=== PATIENT | male | born 1935 | race Caucasian/White ===

== ENCOUNTER 2020-01-24 01:21 | Inpatient (IN) | payer MEDICARE ==
[~2020-01-24] VITALS: Ht 190.5 cm; Wt 95.3 kg
--- NOTE | 2020-01-24 01:27 | NUR ---
PATIENT CAME TO ER BED 1 C/O LEFT SIDED CHEST PAIN. PATIENT CURRENTLY DENIES ANY PAIN. PATIENT STATES THAT HE WAS GOING TO SLEEP WHEN HE TOOK HIS SYMBICORT FOR HIS ASTHMA AND THEN HE FELT TIGHTNESS IN HIS CHEST. PATIENT STATES THAT HE HAD THIS PAIN ABOUT 5x DAYS AGO WELL. AAOX4. NO SOB. BREATHING EVENLY AND UNLABORED ON ROOM AIR. CONNECTED TO NATIONAL SALES CONSULTANT.
--- NOTE | 2020-01-24 01:32 | NUR ---
AT BEDSIDE FOR EVALUATION.
--- NOTE | 2020-01-24 01:33 | NUR ---
EMT AT BEDSIDE FOR EKG
--- NOTE | 2020-01-24 01:39 | NUR ---
TUTOR COORDINATOR AT BEDSIDE FOR LABS.
[2020-01-24 01:44] LABS: BASOPHILS % (AUTO) 0.5 % (0.0-2.0); EOSINOPHILS % (AUTO) 4.6 % (0.0-6.0); HEMATOCRIT 40 % (39-51); HEMOGLOBIN 13.2 g/dL (13.5-17.5); LYMPHOCYTES # (AUTO) 2.5 /CMM (0.8-4.8); LYMPHOCYTES % (AUTO) 35.7 % (20.0-44.0); MEAN CORPUSCULAR HGB CONC 33 g/dl (31.0-36.0); MEAN CORPUSCULAR VOLUME 96 fL (80-96); MONOCYTES # (AUTO) 0.6 /CMM (0.1-1.30); MONOCYTES % (AUTO) 8.5 % (2.0-12.0); NEUTROPHILS # (AUTO) 3.6 /CMM (1.8-8.9); NEUTROPHILS % (AUTO) 50.7 % (43.0-81.0); PLATELET COUNT (AUTO) 227 /CMM (150-450); RED BLOOD CELL COUNT(AUTO) 4.16 MIL/uL (4.5-6.0)
[2020-01-24 01:55] LABS: CREATININE 0.9 mg/dL (0.6-1.3)
[2020-01-24 02:08] LABS: ALBUMIN 3.8 g/dL (3.4-5.0); BILIRUBIN,DIRECT 0.1 mg/dL (0.0-0.2); BILIRUBIN,TOTAL 0.3 mg/dL (0.2-1.0); CALCIUM, SERUM 8.3 mg/dL (8.5-10.1); TOTAL PROTEIN, SERUM 6.7 g/dL (6.4-8.2)
--- NOTE | 2020-01-24 02:19 | NUR ---
SPOKE TO PT'S . UNABLE TO OBTAIN MED LIST. STATED SHE WILL BE BACK WITH MEDICATION LIST IN THE MORNING. PT'S AWARE OF PT BEING ADMITTED.
--- NOTE | 2020-01-24 02:23 | NUR ---
PT AMBUALTED TO THE RESTROOM, VSS.
--- NOTE | 2020-01-24 02:25 | NUR ---
PT BACK TO BED. PLACED ON MONITOR AND PULSE OX.
--- NOTE | 2020-01-24 02:55 | NUR ---
PT TRANSFERD PER ACLS PROTOCOL
[2020-01-24 03:00] VITALS: BP 166/73
[2020-01-24] MEDS ORDERED: NITROGLYCERIN 0.4 MG/TAB BOTTLE SL PRN (03:00)
[2020-01-24] MEDS ORDERED: DOCUSATE SODIUM 100 MG CAPSULE PO PRN (03:00)
[2020-01-24] MEDS ORDERED: MORPHINE SULFATE INJ 2 MG/ML DISP.SYRIN IV PRN (03:00)
[2020-01-24] MEDS ORDERED: MAG HYDROX/AL HYDROX/SIMETH 30 ML UDC PO PRN (03:00)
[2020-01-24] MEDS ORDERED: ONDANSETRON HCL/PF 4 MG/2 ML VIAL IVP PRN (03:00)
[2020-01-24] MEDS ORDERED: ACETAMINOPHEN 325 MG TABLET PO PRN (03:00)
--- NOTE | 2020-01-24 03:00 | NUR ---
COAL DRIER OPERATORFLOOR SANDING MACHINE OPERATOR NOTES RECEIVED FROM ER THIS 84 YO MALE.ALERT,ORIENTED X4,NO SOB,WITH CHIEF COMPLAINTS OF CHEST PAIN ART MANAGER.NO SKIN ISSUES.SALINE LOCK RIGHT AC INTACT AND PATENT.DENIES CHEST PAIN UPON ARRIVAL ON THE FLOOR,O2 SAT 100% ON ROOM AIR.SR-68 ON TELE MONITOR.PATIENT VERBALIZED THAT HE'S ON SYMBICORT PUFFS FOR HIS ASTHMA.2 PUFFS TWICE A DAY,THAT MAYBE HE OVERDO TAKING IT WHEN HES SHORT OF BREATH.AMBULATE WITH STEADY GAIT.BED ON LOWEST POSITION AND LOCKED.CALL LIGHT IN REACH,NEEDS ANTICIPATED.
[2020-01-24 04:03] VITALS: BP 146/80
[2020-01-24] MEDS ORDERED: ALBU18HF2 IH (04:22)
[2020-01-24] MEDS ORDERED: PIOG15TA8 PO (04:22)
[2020-01-24] MEDS ORDERED: METF-440 PO (04:22)
[2020-01-24] MEDS ORDERED: LEVO50TA8 PO (04:22)
[2020-01-24] MEDS ORDERED: IBUP-1957 PO (04:22)
[2020-01-24] MEDS ORDERED: INSU100C10 SQ (04:22)
[2020-01-24] MEDS ORDERED: VALS160T2 PO (04:22)
--- NOTE | 2020-01-24 06:30 | NUR ---
AIRPLANE FUELER NOTES RESTING COMFORTABLY ON BED,DENIES CHEST PAIN,IN NO ACUTE DISTRESS.CALL LIGHT IN REACH,NEEDS ATTENDED.
--- NOTE | 2020-01-24 07:30 | NUR ---
Tele/RN Opening note Received patient AO x 4, able to responds all stimuli. Denies chest pain or any discomfort. Skin is warm to touch, kept clean/dry. Respiratory even and unlabored in room air. Keep bed in lock with low position and elevated HOB. Call light within reach, will continue to monitor.
[2020-01-24] MEDS ORDERED: METOPROLOL TARTRATE INJ 5 MG/5 ML AMPUL IVP PRN (08:30)
[2020-01-24] MEDS ORDERED: NITROGLYCERIN 0.4 MG/TAB BOTTLE SL ONE (08:30)
[2020-01-24] MEDS ORDERED: ASPIRIN 81 MG TAB.CHEW PO SCH (09:00)
[2020-01-24] MEDS ORDERED: METFORMIN 500 MG TABLET PO SCH (09:00)
[2020-01-24] MEDS ORDERED: PIOGLITAZONE HCL 15 MG TABLET PO SCH (09:00)
[2020-01-24] MEDS ORDERED: LEVOTHYROXINE SODIUM 50 MCG TABLET PO SCH (09:00)
[2020-01-24] MEDS ORDERED: ENOXAPARIN SODIUM 100 MG/ML DISP.SYRIN SQ SCH (09:00)
[2020-01-24] MEDS ORDERED: VALSARTAN 80 MG TABLET PO SCH (09:00)
[2020-01-24] MEDS ORDERED: INSU300I SQ (09:18)
[2020-01-24] MEDS ORDERED: IOHEXOL-350 100 ML VIAL IV ONE (09:19)
[2020-01-24] MEDS ORDERED: IV NS 0.9% 250 ML IV ONE (09:19)
[2020-01-24] MEDS ORDERED: METOPROLOL TARTRATE INJ 5 MG/5 ML AMPUL ONE (09:28)
--- NOTE | 2020-01-24 09:39 | NUR ---
POST CTA. PT TOLERATED WELL CTA PROCEDURE, NOT IN RESPIRATORY DISTRESS, V/S STABLE, KEPT RESTED AND COMFORTABLE, REPORT GIVEN TO BRADLEY TANG FOR OLIVIA.
[2020-01-24 10:05] VITALS: BP 140/70
[2020-01-24] MEDS ORDERED: SIMV-46 PO (12:45)
--- NOTE | 2020-01-24 13:00 | NUR ---
Given discharge instruction include new medication/prescription, side effecting. Patient verbally understanding. Pt left facility accompanied by staff to the private car, denies chest pain or any discomfort, in stable condition.
[2020-01-24] MEDS ORDERED: SIMVASTATIN 20 MG TABLET PO SCH (22:00)
== END 2020-01-24 13:06 | disposition home or self-care (01) | DRG 281 ==
LOC: ER 01:21 → TELE 02:39
PROVIDERS: ADMIT Hospitalist; ATTEND Hospitalist
DX: I21.4 Non-ST elevation (NSTEMI) myocardial infarction (principal); N17.9 Acute kidney failure, unspecified; N39.0 Urinary tract infection, site not specified; E11.9 Type 2 diabetes mellitus without complications; I10 Essential (primary) hypertension; J45.909 Unspecified asthma, uncomplicated; E03.9 Hypothyroidism, unspecified; E86.0 Dehydration
CPT/HCPCS: 36415; 71045-TC; 75574; 80048-TC; 80076-TC; 83880; 84484-TC; 85025-TC; 85730-TC; 87081-TC; 93307-TC; G0378; J1650; J3490; J7050; Q9967

== ENCOUNTER 2023-01-04 17:18 | Inpatient (IN) | payer MEDICARE, OTHER ==
[~2023-01-04] VITALS: Ht 190.5 cm; Wt 88.5 kg
[~2023-01-04 17:18] MED LIST: ALBU18HF2 IH; IBUP-1957 PO; INSU100C10 SQ; INSU300I SQ; LEVO50TA8 PO; METF-440 PO; PIOG15TA8 PO; SIMV-46 PO; VALS160T2 PO
--- NOTE | 2023-01-04 17:33 | NUR ---
BIBS C/O SOB X 3 DAYS. "MY INHALER IS NOT WORKING". AMBULATORY, PLACED IN BED, AAOX4, BREATHING UNLABORED SATURATING AT 96%RA.
--- NOTE | 2023-01-04 17:46 | NUR ---
CALLED DR. SHERMAN CASCADE OPERATOR [phone] OPTION 2, 0. DR. HOLT IS DEMONSTRATOR ELECTRIC GAS APPLIANCES AND WILL BE PAGED.
--- NOTE | 2023-01-04 17:59 | NUR ---
BLOOD DRAWN AND SENT TO LAB
[2023-01-04] MEDS ORDERED: ALBUTEROL FS 2.5 MG/3 ML VIAL.NEB NEB ONE (18:00)
[2023-01-04] MEDS ORDERED: OLME20TA23 PO (18:18)
[2023-01-04] MEDS ORDERED: AMLO2.5T4 PO (18:18)
[2023-01-04] MEDS ORDERED: DULA1.5P SQ (18:18)
[2023-01-04] MEDS ORDERED: FLUT1BLS6 INH (18:18)
--- NOTE | 2023-01-04 18:20 | NUR ---
MOVE SHEET SUBMITTED.
[2023-01-04] MEDS ORDERED: METF-440 PO (18:34)
[2023-01-04] MEDS ORDERED: INSU300I SQ (18:34)
[2023-01-04] MEDS ORDERED: INSU100V11 SQ (18:34)
--- NOTE | 2023-01-04 18:39 | NUR ---
SWAB FOR COVID19 SENT TO LAB
[2023-01-04 18:41] LABS: BASOPHILS % (AUTO) 0.5 % (0.0-2.0); EOSINOPHILS % (AUTO) 0.7 % (0.0-6.0); HEMATOCRIT 44 % (39-51); HEMOGLOBIN 14.4 g/dL (13.5-17.5); LYMPHOCYTES % (AUTO) 17.4 % (20.0-44.0); MEAN CORPUSCULAR HGB CONC 33 g/dl (31.0-36.0); MEAN CORPUSCULAR VOLUME 95 fL (80-96); MONOCYTES # (AUTO) 0.6 K/uL (0.1-1.30); MONOCYTES % (AUTO) 10.5 % (2.0-12.0); NEUTROPHILS # (AUTO) 4.2 K/uL (1.8-8.9); NEUTROPHILS % (AUTO) 70.9 % (43.0-81.0); PLATELET COUNT (AUTO) 277 K/uL (150-450); RED BLOOD CELL COUNT(AUTO) 4.65 MIL/uL (4.5-6.0); WHITE BLOOD COUNT (AUTO) 5.9 K/uL (4.3-11.0)
[2023-01-04] MEDS ORDERED: AMIODARONE 450 MG in IV D5W 250 ML IV ONE (19:00)
[2023-01-04] MEDS ORDERED: AMIODARONE 150 MG in IV D5W 100 ML IV ONE (19:00)
[2023-01-04 19:03] LABS: CALCIUM, SERUM 9.2 mg/dL (8.5-10.1); CARBON DIOXIDE 29 mmol/L (21-32); CHLORIDE 104 mmol/L (98-107); CREATININE 1.2 mg/dL (0.6-1.3); POTASSIUM 4.2 mmol/L (3.5-5.1); SODIUM SERUM 139 mmol/L (136-145); UREA NITROGEN, BLOOD 19 mg/dL (7-18)
[2023-01-04 19:11] LABS: GLUCOSE 47 mg/dL (74-106)
[2023-01-04 19:15] LABS: ALANINE AMINOTRANSFERASE 36 U/L (12-78); ALBUMIN 3.8 g/dL (3.4-5.0); ALKALINE PHOSPHATASE 130 U/L (46-116); ASPARTATE AMINOTRANSFERASE 25 U/L (15-37); BILIRUBIN,DIRECT 0.4 mg/dL (0.0-0.2); BILIRUBIN,TOTAL 1.2 mg/dL (0.2-1.0); TOTAL PROTEIN, SERUM 7.2 g/dL (6.4-8.2)
[2023-01-04] MEDS ORDERED: DEXTROSE 50%-WATER 50 ML DISP.SYRIN ONE (19:19)
[2023-01-04] MEDS ORDERED: DEXTROSE 50%-WATER 50 ML DISP.SYRIN IV ONE (19:30)
[2023-01-04] MEDS ORDERED: MAG HYDROX/AL HYDROX/SIMETH 30 ML UDC PO PRN (20:00)
[2023-01-04] MEDS ORDERED: AMIODARONE 450 MG in IV D5W 241 ML IV PRN (20:00)
[2023-01-04] MEDS ORDERED: FUROSEMIDE 20 MG/2 ML VIAL IV ONE (20:00)
[2023-01-04] MEDS ORDERED: Z GUARD REMEDY 4 OZ OINT TP PRN (20:00)
[2023-01-04] MEDS ORDERED: ACETAMINOPHEN 325 MG TABLET PO PRN (20:00)
[2023-01-04] MEDS ORDERED: ZOLPIDEM TARTRATE 5 MG TABLET PO PRN (20:00)
[2023-01-04] MEDS ORDERED: DEXTROSE 50%-WATER 50 ML DISP.SYRIN IV PRN (20:00)
[2023-01-04] MEDS ORDERED: MAGNESIUM HYDROXIDE 30 ML UDC PO PRN (20:00)
[2023-01-04] MEDS ORDERED: ONDANSETRON HCL/PF 4 MG/2 ML VIAL IVP PRN (20:00)
[2023-01-04] MEDS ORDERED: FUROSEMIDE 20 MG/2 ML VIAL ONE (20:02)
--- NOTE | 2023-01-04 20:33 | NUR ---
REPORT GIVEN TO FRANCISCO J HUERTA ROOM 115-2 FOR OLIVIA
--- NOTE | 2023-01-04 20:50 | NUR ---
[facility] RELOCATION ASSOCIATE NOTES RECEIVED REPORT FROM TOBACCO CLASSER LUCHO. PATIENT TRANSFERRED TO [facility], PLACED IN ROOM 115-2. PATIENT A&O X4. PATIENT ON RA O2 SATURATION 97%, SLIGHT SOB. AFIB RVR ON THE MONITOR. IV ACCESS ON RAC 20 GAUGE, INTACT AND PATENT, NO S/S OF INFILTRATION, RUNNING AMIODARONE DRIP AT 33.3 ML/HR. DRIP WAS STARTED AT 19:30. NO MANIFESTATIONS OF ACUTE PAIN OR DISCOMFORT. ASSESSED THE WHOLE BODY, NO OPEN SKIN, NO SKIN DISCOLORATION NOTED. FAMILY AT BEDSIDE. ALL SAFETY MEASURES IMPLEMENTED, BED LOCKED IN LOWEST POSITION, SIDE RAILS X3 UP, HOB ELEVATED, BELONGINGS AND CALL LIGHT WITHIN REACH. WILL CONTINUE TO MONITOR.
--- NOTE | 2023-01-04 20:58 | NUR ---
PATIENT TRANSFERED AND ADMITTED PER ACLS PROTOCOL
[2023-01-04 21:00] VITALS: BP 138/80
[2023-01-04] MEDS ORDERED: ALBUTEROL FS 2.5 MG/0.5 ML VIAL.NEB IH PRN (21:00)
[2023-01-04] MEDS: methylPREDNISolone SOD SUCC 40 MG/ML VIAL IV SCH (21:11)
[2023-01-04] MEDS: BLOOD SUGAR DIAGNOSTIC 1 EACH STRIP IN SCH (22:24)
[2023-01-04] MEDS: INSULIN REGULAR, HUMAN 100 UNIT/ML 3 ML VIAL SQ PRN (22:25)
--- NOTE | 2023-01-04 22:26 | NUR ---
RN NOTE BLOOD SUGAR 140, PATIENT HAD EPISODE OF HYPOGLYCEMIA, BLOOD SUGAR WAS AT 47. PATIENT HAD A SNACK AFTER HE WAS ADMITTED TO THE [facility]. NOTIFIED STEM MOUNTER Jana TUTTLE, HELD INSULIN. NO S/S OF HYPER OR HYPOGLYCEMIA.
[2023-01-05] VITALS: BP 124/96
[2023-01-05] MEDS: ALBUTEROL HALF STRENGTH 1.25 MG/3 ML VIAL.NEB NEB SCH ×2 (01:26→07:49)
--- NOTE | 2023-01-05 01:35 | NUR ---
RN NOTES: AMIODARONE DRIP DECREASED TO 16.6ML/HR X18 HOURS. V/S STABLE. WILL CONTINUE TO MONITOR
[2023-01-05 04:00] VITALS: BP 128/81
[2023-01-05] MEDS: methylPREDNISolone SOD SUCC 40 MG/ML VIAL IV SCH ×2 (04:09→09:41)
[2023-01-05] MEDS ORDERED: FUROSEMIDE 40 MG/4 ML VIAL IV ONE (05:00)
[2023-01-05] MEDS ORDERED: DILTIAZEM HCL 50 MG IV IV ONE (05:00)
[2023-01-05 06:21] LABS: BASOPHILS % (AUTO) 0.1 % (0.0-2.0); HEMATOCRIT 44 % (39-51); HEMOGLOBIN 14.6 g/dL (13.5-17.5); LYMPHOCYTES # (AUTO) 0.3 K/uL (0.8-4.8); LYMPHOCYTES % (AUTO) 7.6 % (20.0-44.0); MEAN CORPUSCULAR HGB CONC 33 g/dl (31.0-36.0); MEAN CORPUSCULAR VOLUME 94 fL (80-96); MONOCYTES # (AUTO) 0.1 K/uL (0.1-1.30); MONOCYTES % (AUTO) 1.5 % (2.0-12.0); NEUTROPHILS # (AUTO) 3.2 K/uL (1.8-8.9); NEUTROPHILS % (AUTO) 90.8 % (43.0-81.0); PLATELET COUNT (AUTO) 250 K/uL (150-450); WHITE BLOOD COUNT (AUTO) 3.5 K/uL (4.3-11.0)
[2023-01-05 06:36] LABS: CALCIUM, SERUM 9.2 mg/dL (8.5-10.1); PHOSPHORUS 4.6 mg/dL (2.5-4.9); POTASSIUM 4.1 mmol/L (3.5-5.1)
--- NOTE | 2023-01-05 06:40 | NUR ---
[facility] RN CLOSING NOTES PATIENT IN BED, SLEEPING. PATIENT A&O X4. PATIENT ON 2 LITERS OF SUPPLEMENTAL OXYGEN VIA NC, NO S/S OF RESPIRATORY DISTRESS. AFIB RVR ON THE MONITOR. IV ACCESS ON RAC 20 GAUGE, INTACT AND PATENT, NO S/S OF INFILTRATION, RUNNING AMIODARONE DRIP AT 16.6 ML/HR. NO MANIFESTATIONS OF ACUTE PAIN OR DISCOMFORT. FAMILY AT BEDSIDE. ALL SAFETY MEASURES IMPLEMENTED, BED LOCKED IN LOWEST POSITION, SIDE RAILS X2 UP, HOB ELEVATED, BELONGINGS AND CALL LIGHT WITHIN REACH. WILL BE ENDORSED TO THE NEXT SHIFT.
[2023-01-05 08:00] VITALS: BP 135/93
--- NOTE | 2023-01-05 08:01 | NUR ---
[facility] RN NOTE PATIENT R IN BED , PT IS A/OX4, ON 2L NC NO SOB NOTED AT THIS TIME HAS IV ACCESS ON THE RT AC 20G NS RUNNING AT 0.5 MG AMIODARONE DRIP ORDERED, ON TELE MONITOR AFIB HR 122-135 DR ROMERO NOTIFIED SAFETY PRECAUTIONS IN PLACE, BED IS AT LOWEST POSITION, CALL LIGHT WITHIN REACH AND INSTRUCTED TO CALL FOR ASSISTANCE,KEPT DRY AND CLEAN, [place] Addendum: 01/05/23 at 0804 by CHIOMA OBREGON RN WILL MONITOR CLOSELY Addendum: 01/05/23 at 1845 by CHIOMA OBREGON RN [phone] DR ROMERO NOTIFIED THAT AMIO DRIP WILL BE COMPETED AT 1930 TONIGHT NO NEW ORDER GIVEN AT THIS TIME
[2023-01-05] MEDS: LEVOTHYROXINE SODIUM 75 MCG TABLET PO SCH (08:32)
[2023-01-05] MEDS: AMLODIPINE BESYLATE 2.5 MG TABLET PO SCH (08:33)
[2023-01-05] MEDS: INSULIN REGULAR, HUMAN 100 UNIT/ML 3 ML VIAL SQ PRN ×2 (08:35→13:40)
[2023-01-05] MEDS: BLOOD SUGAR DIAGNOSTIC 1 EACH STRIP IN SCH ×2 (08:49→12:22)
[2023-01-05] MEDS ORDERED: ENOXAPARIN SODIUM 40 MG/0.4 ML DISP.SYRIN SQ SCH (09:00)
--- NOTE | 2023-01-05 09:30 | NUR ---
telephone information clerk note [facility] done is score 8 at this time, Ame neurologist BRADLEY N P at bedside checking PATIENT with ORDER cta brain and carotid ,will f\u Addendum: 01/05/23 at 1844 by CHIOMA OBREGON RN correction, no NIHSS score, wrong charting
[2023-01-05] MEDS: FUROSEMIDE 40 MG/4 ML VIAL IV SCH ×3 (09:41→17:03)
[2023-01-05] MEDS: POTASSIUM CHLORIDE 20 MEQ TAB.PRT.SR PO SCH ×2 (09:41→10:57)
[2023-01-05] MEDS: IPRATROPIUM NEB FS 0.5 MG/2.5 ML AMPUL.NEB NEB SCH ×3 (09:50→19:43)
[2023-01-05] MEDS ORDERED: ENOXAPARIN SODIUM 100 MG/ML DISP.SYRIN SQ SCH (10:00)
[2023-01-05] MEDS: FLUTICASONE/VILANTEROL 1 EACH BLST.W.DEV IH SCH (10:57)
[2023-01-05] MEDS ORDERED: ENOXAPARIN SODIUM 60 MG/0.6 ML DISP.SYRIN SQ ONE (11:30)
--- NOTE | 2023-01-05 11:43 | NUR ---
television presenter nnote on amio drip as ordered seen by spenser rn supervisor [employer] 2d echo done as ordered
[2023-01-05 12:00] VITALS: BP 127/82
--- NOTE | 2023-01-05 14:18 | NUR ---
[facility] RN NOTE CT CHEST DONE ORDERED
--- NOTE | 2023-01-05 15:49 | NUR ---
[facility] RN NOTE REPORTED TO DR BASS THAT BLOOD SUGAR 206 MG\DL ,266, 271MG\DL , OK TO CHANGE TO MILD SLIDING SCALE , ORDER CARRIED OUT
[2023-01-05 16:00] VITALS: BP 123/75
[2023-01-05] MEDS ORDERED: *INSULIN REGULAR(HUMULIN R)HUM 100 UNIT/ML VIAL SQ PRN (16:00)
[2023-01-05] MEDS ORDERED: DEXTROSE 50%-WATER 50 ML DISP.SYRIN IV PRN (16:00)
[2023-01-05] MEDS ORDERED: INSULIN REGULAR, HUMAN 100 UNIT/ML 3 ML VIAL SQ PRN (16:00)
[2023-01-05] MEDS: BLOOD SUGAR DIAGNOSTIC 1 EACH STRIP VI SCH ×2 (17:44→21:24)
--- NOTE | 2023-01-05 18:35 | NUR ---
niall rn note patient in bed , alert oriented x4 ,on amiodarone drip as ordered , still afib hr 110 at this time, on 2l nc no sob noted at this time , using urinal effectively rt ac hl intact and flushed well , bed in lowest and locked position ,call light within reach , will cont to monitor closely ,safety measure implemented,
--- NOTE | 2023-01-05 19:00 | NUR ---
RN NOTE Report received from Fior HUERTA, patient in bed, AAO x 4, on high dietz's, family at bedside, saturation at 96% on 2L via NC, afib on the monitor HR is 115. IV line at RAC 20g patent and flushing well with ongoing amiodarone drip at 0.5 mg/min. Patient is continent and able to uses urinal. Safety measures in place, bed is locked and at lowest position, HOB elevated, call light within reach of patient. Will continue to monitor and reassess.
--- NOTE | 2023-01-05 19:59 | NUR ---
RN NOTE Amiodarone drip completed 24h per orders, per Dr Pearl discontinue amiodarone drip then start Digoxin 0.25 IV Q6H x 3 doses.
[2023-01-05 20:00] VITALS: BP 107/65
[2023-01-05] MEDS: ENOXAPARIN SODIUM 100 MG/ML DISP.SYRIN SQ SCH (21:13)
[2023-01-05] MEDS: DIGOXIN INJ 0.5 MG/2 ML AMPUL IV SCH (21:15)
[2023-01-06] VITALS: BP 125/94
[2023-01-06] MEDS: IPRATROPIUM NEB FS 0.5 MG/2.5 ML AMPUL.NEB NEB SCH ×3 (01:52→13:27)
--- NOTE | 2023-01-06 01:52 | NUR ---
RT Meds not scanned at this [place], no scanner available.
[2023-01-06] MEDS: DIGOXIN INJ 0.5 MG/2 ML AMPUL IV SCH ×2 (02:46→07:39)
[2023-01-06 04:00] VITALS: BP_SYST 124; BP_SYST 133; BP_DIAS 63; BP_DIAS 84
--- NOTE | 2023-01-06 06:11 | NUR ---
EKG completed, Results given to enterprise integration developer Elsa
--- NOTE | 2023-01-06 06:40 | NUR ---
RN NOTE Patient in bed, AAO x 4, on high dietz's, family at bedside, saturation at 97% on 2L via NC, afib on the monitor HR is 75-95. IV line at RAC 20g patent and flushing well. Patient is continent and able to uses urinal. Safety measures in place, bed is locked and at lowest position, srx2 are up, HOB elevated, call light within reach of patient. Will endorse to the next shift for OLIVIA
[2023-01-06] MEDS: LEVOTHYROXINE SODIUM 75 MCG TABLET PO SCH (07:39)
[2023-01-06] MEDS: BLOOD SUGAR DIAGNOSTIC 1 EACH STRIP VI SCH ×2 (07:45→11:34)
[2023-01-06 08:00] VITALS: BP 113/74
[2023-01-06] MEDS: methylPREDNISolone SOD SUCC 40 MG/ML VIAL IV SCH (08:10)
[2023-01-06] MEDS: AMLODIPINE BESYLATE 2.5 MG TABLET PO SCH (08:10)
[2023-01-06] MEDS: ENOXAPARIN SODIUM 100 MG/ML DISP.SYRIN SQ SCH (08:10)
[2023-01-06] MEDS: FLUTICASONE/VILANTEROL 1 EACH BLST.W.DEV IH SCH (08:14)
--- NOTE | 2023-01-06 08:50 | NUR ---
DR. GOODRICH ORDER NOT TO GIVE THE LOVENOX DUE TO PATIENT WILL HAVE THORACENTESIS TODAY, NOTED AND CARRIED OUT.
[2023-01-06] MEDS ORDERED: DILTIAZEM HCL CD 240 MG PO SCH (09:00)
--- NOTE | 2023-01-06 09:00 | NUR ---
DR. GOODRICH SPOKE TO THE PATIENT AND AT THE BEDSIDE, PATIENT REFUSED TO DO THORACENTESIS TODAY, PER DR. GOODRICH CAN RESUME LOVENOX, NOTED AND CARRIED OUT.
[2023-01-06 09:14] LABS: BASOPHILS # (AUTO) 0.1 K/uL (0.0-0.2); BASOPHILS % (AUTO) 0.5 % (0.0-2.0); EOSINOPHILS % (AUTO) 0.1 % (0.0-6.0); HEMATOCRIT 42 % (39-51); HEMOGLOBIN 13.9 g/dL (13.5-17.5); LYMPHOCYTES # (AUTO) 1.1 K/uL (0.8-4.8); LYMPHOCYTES % (AUTO) 9.4 % (20.0-44.0); MEAN CORPUSCULAR HGB CONC 33 g/dl (31.0-36.0); MEAN CORPUSCULAR VOLUME 94 fL (80-96); MONOCYTES # (AUTO) 0.9 K/uL (0.1-1.30); MONOCYTES % (AUTO) 7.7 % (2.0-12.0); NEUTROPHILS # (AUTO) 9.4 K/uL (1.8-8.9); NEUTROPHILS % (AUTO) 82.3 % (43.0-81.0); PLATELET COUNT (AUTO) 222 K/uL (150-450); RED BLOOD CELL COUNT(AUTO) 4.44 MIL/uL (4.5-6.0); WHITE BLOOD COUNT (AUTO) 11.5 K/uL (4.3-11.0)
[2023-01-06 09:25] LABS: CALCIUM, SERUM 8.8 mg/dL (8.5-10.1); CREATININE 1.1 mg/dL (0.6-1.3); MAGNESIUM 2.2 mg/dL (1.8-2.4); PHOSPHORUS 4.1 mg/dL (2.5-4.9); POTASSIUM 4.2 mmol/L (3.5-5.1)
[2023-01-06] MEDS ORDERED: ENOXAPARIN SODIUM 100 MG/ML DISP.SYRIN SQ SCH (09:30)
[2023-01-06 12:00] VITALS: BP 135/84
[2023-01-06] MEDS ORDERED: FUROSEMIDE 40 MG/4 ML VIAL IV SCH (14:00)
--- NOTE | 2023-01-06 14:45 | NUR ---
SHELIA HSAY SEEN THE PATIENT, SHELIA SHAY INFORMED PATIENT THAT HE WILL DC THE PATIENT, PATIENT REQUESTED THE TELE MONITOR TO BE REMOVED BECAUSE HE WILL PUT HIS CLOTHES ON, EDUCATE THE PATIENT OF THE IMPORTANCE OF PUTTING IT ON FOR NOWX3, BUT PATIENT INSISTED TO REMOVED IT, PATIENT STILL ON AFIB HR 60'S, DENIES CHEST PAIN, NO SOB NOTED.
[2023-01-06] MEDS ORDERED: IPRA4AER IH (14:46)
[2023-01-06] MEDS ORDERED: DILT240C88 PO (14:46)
--- NOTE | 2023-01-06 15:48 | NUR ---
DISCHARGE INSTRUCTIONS REVIEWED WITH THE PATIENT, INSTRUCTED THE PATIENT TO TAKE NEW MEDICATION ORDERED,NEW PRESCRIPTION CAN BE PASS WORKER AT THE PHARMACY OF CHOICE. FOLLOW UP WITH PRIMARY CARE PHYSICIAN, FOLLOW UP WITH HIS OWN DEVELOPMENT TECHNICAL LEAD AND POST HOLE DIGGER, COME BACK TO ER [facility] WHEN SHORTNESS OF BREATH COMES BACK, PATIENT CONFIRMED UNDERSTANDING. PATIENT SIGNED ALL DISCHARGE PAPER WORKS AND PERSONAL BELONGINGS. REMOVED PIV. RELEASED ALL THE DISCHARGE PAPER WORKS AND PERSONAL BELONGINGS TO THE PATIENT. PATIENT EXITED THE HOSPITAL WITH VIA PRIVATE CAR.
[2023-01-10] MEDS ORDERED: DULAGLUTIDE SQ SCH (09:00)
== END 2023-01-06 15:50 | disposition home or self-care (01) | DRG 291 ==
LOC: ER 17:27 → TELE1 20:16 → TELE-TD 20:52
PROVIDERS: ADMIT Nurse Practitioner Acute Care; ATTEND Nurse Practitioner Acute Care
DX: I11.0 Hypertensive heart disease with heart failure (principal); I50.43 Acute on chronic combined systolic (congestive) and diastolic (congestive) heart failure; C34.90 Malignant neoplasm of unspecified part of unspecified bronchus or lung; J45.901 Unspecified asthma with (acute) exacerbation; J90 Pleural effusion, not elsewhere classified; E87.1 Hypo-osmolality and hyponatremia; J98.11 Atelectasis; I48.91 Unspecified atrial fibrillation; E11.649 Type 2 diabetes mellitus with hypoglycemia without coma; Z20.822 Contact with and (suspected) exposure to COVID-19; Z92.3 Personal history of irradiation; Z79.4 Long term (current) use of insulin; Z79.84 Long term (current) use of oral hypoglycemic drugs; Z79.51 Long term (current) use of inhaled steroids; Z79.899 Other long term (current) drug therapy; E03.9 Hypothyroidism, unspecified; Z80.9 Family history of malignant neoplasm, unspecified; R79.89 Other specified abnormal findings of blood chemistry; R74.01 Elevation of levels of liver transaminase levels; I25.2 Old myocardial infarction
CPT/HCPCS: 36415; 71045-TC; 71250-TC; 80048-TC; 80061-TC; 80076-TC; 82962-TC; 83735-TC; 83880; 84100-TC; 84443-TC; 84484-TC; 85025-TC; 87081-TC; 93307-TC; 94799-TC; C9803; G0378; J0282; J1160; J1650; J1815; J1940; J2920; J3490; J7060